=== PATIENT | female | born 1980 | race Caucasian/White ===

== ENCOUNTER 2017-09-01 16:35 | Inpatient (IN) | payer MEDICAID ==
[~2017-09-01] VITALS: Ht 165.1 cm; Wt 100.3 kg
[2017-09-01] MEDS ORDERED: RISP2 PO (17:59)
[2017-09-01] MEDS ORDERED: LEVO75 PO (18:00)
[2017-09-01] MEDS ORDERED: METF500T6 PO (18:01)
[2017-09-01] MEDS ORDERED: SERT50TA12 PO (18:08)
[2017-09-01] MEDS ORDERED: BENZ1TAB10 PO (18:08)
[2017-09-01] MEDS ORDERED: OLAN2.5T3 PO (18:08)
[2017-09-01] MEDS ORDERED: HYDR-3110 PO (18:08)
[2017-09-01 18:24] LABS: BASOPHILS % (AUTO) 1.1 % (0.0-2.0); EOSINOPHILS % (AUTO) 1.5 % (1.0-6.0); HEMATOCRIT 39.5 % (36-46); HEMOGLOBIN 13.3 g/dL (12.0-16.0); LYMPHOCYTES # (AUTO) 3.8 K/uL (1.0-4.8); LYMPHOCYTES % (AUTO) 40.6 % (22.0-44.0); MEAN CORPUSCULAR HEMOGLOBIN 27.5 pg (26.0-34.0); MEAN CORPUSCULAR HGB CONC 33.7 G/dL (31.0-37.0); MEAN CORPUSCULAR VOLUME 82 fL (80-100); MONOCYTES # (AUTO) 0.7 K/uL (0.1-1.0); MONOCYTES % (AUTO) 7.9 % (2.0-9.0); NEUTROPHILS # (AUTO) 4.5 K/uL (1.8-7.7); NEUTROPHILS % (AUTO) 48.9 % (40.0-70.0); PLATELET COUNT (AUTO) 325 K/uL (150-450); RED BLOOD CELL COUNT(AUTO) 4.85 MIL/uL (4.00-5.20); RED CELL DISTRIBUTION WIDTH 13.2 % (11.5-14.5)
[2017-09-01 18:34] LABS: ANION GAP 10 mmol/L (8-16); CALCIUM, TOTAL 9.4 mg/dL (8.8-10.5); CARBON DIOXIDE 24 mmol/L (22-29); CHLORIDE 99 mmol/L (98-107); CREATININE 0.73 mg/dL (0.60-1.30); GLOMERULAR FILTR. RATE CALC > 60 mL/min (>60); GLUCOSE,RANDOM 244 mg/dL (70-110); POTASSIUM 4.1 mmol/L (3.5-5.1); SODIUM SERUM 133 mmol/L (136-145); UREA NITROGEN, BLOOD 9 mg/dL (7-18)
[2017-09-01 18:40] LABS: ALANINE AMINOTRANSFERASE 69 U/L (12-78); ALBUMIN 3.7 g/dL (3.4-5.0); ALKALINE PHOSPHATASE 65 U/L (46-116); ASPARTATE AMINOTRANSFERASE 51 U/L (15-37); BILIRUBIN,TOTAL 0.3 mg/dL (0.1-1.0); TOTAL PROTEIN, SERUM 8.3 g/dL (6.4-8.2)
[2017-09-01 19:04] LABS: AMPHET/METH SCREEN,URINE NEGATIVE (NEGATIVE); BARBITURATE SCREEN, URINE NEGATIVE (NEGATIVE); BENZODIAZEPINES SCREEN,URINE NEGATIVE (NEGATIVE); CANNABINOID SCREEN,URINE NEGATIVE (NEGATIVE); COCAINE SCREEN,URINE NEGATIVE (NEGATIVE); METHADONE SCREEN, URINE NEGATIVE (NEGATIVE); OPIATE SCREEN,URINE NEGATIVE (NEGATIVE); PHENCYCLIDINE SCREEN,URINE NEGATIVE (NEGATIVE)
[2017-09-01 19:20] LABS: HCG,QUANTITATIVE < 1 mIU/mL (0-6)
[2017-09-01] MEDS: LORazepam 2 MG TABLET PO PRN (23:40)
[2017-09-01 23:47] LABS: GLUCOSE,POINT OF CARE 176 MG/DL (70-110)
[2017-09-01 23:58] LABS: GLUCOSE,POINT OF CARE 182 MG/DL (70-110)
[2017-09-02] MEDS ORDERED: PNEUMOCOCCAL VACCINE POLYVALENT 0.5 ML VIAL [PPSV23] IM ONE (01:15)
[2017-09-02 01:26] VITALS: BP 111/77
[2017-09-02 07:06] LABS: FREE T4 (FREE THYROXINE) 0.83 ng/dL (0.76-1.46); THYROID STIMULATING HORMONE 2.69 uIU/mL (0.36-3.74)
[2017-09-02] MEDS ORDERED: DEXTROSE 50%-WATER 25 GM/50 ML SYRINGE IVP PRN (07:15)
[2017-09-02] MEDS ORDERED: MetFORMIN HCL 500 MG TABLET PO SCH (07:30)
[2017-09-02 08:05] VITALS: BP 102/58
[2017-09-02] MEDS: LORazepam 2 MG TABLET PO PRN ×2 (09:46→17:09)
[2017-09-02 11:18] LABS: GLUCOMETER DEV NAME(LOC) 3EI B; GLUCOSE,POINT OF CARE 291 MG/DL (70-110)
[2017-09-02] MEDS: INSULIN LISPRO 100 UNITS/ML SQ PRN ×3 (11:27→20:57)
[2017-09-02] MEDS ORDERED: IBUPROFEN 400 MG TABLET PO PRN (14:00)
[2017-09-02 16:59] VITALS: BP 118/67
[2017-09-02] MEDS: MetFORMIN HCL 500 MG TABLET PO SCH (17:09)
[2017-09-02 17:18] LABS: GLUCOMETER DEV NAME(LOC) 3EI B; GLUCOSE,POINT OF CARE 275 MG/DL (70-110)
[2017-09-02] MEDS: HALOPERIDOL 5 MG TABLET PO PRN (18:01)
[2017-09-02 20:57] LABS: GLUCOMETER DEV NAME(LOC) 3EI B; GLUCOSE,POINT OF CARE 259 MG/DL (70-110)
[2017-09-03 05:38] LABS: GLUCOMETER DEV NAME(LOC) 3EI B; GLUCOSE,POINT OF CARE 229 MG/DL (70-110)
[2017-09-03 06:47] LABS: CHOL/HDL RATIO 6.6 (3.9-5.7); HDL CHOLESTEROL 42 mg/dL (40-60); THYROID STIMULATING HORMONE 1.58 uIU/mL (0.36-3.74); TRIGLYCERIDES 543 mg/dL (15-150)
[2017-09-03 06:54] LABS: CHOLESTEROL 279 mg/dL (131-200)
[2017-09-03] MEDS: MetFORMIN HCL 500 MG TABLET PO SCH ×2 (07:04→17:20)
[2017-09-03] MEDS: INSULIN LISPRO 100 UNITS/ML SQ PRN ×4 (07:05→22:00)
[2017-09-03 07:42] LABS: HEMOGLOBIN A1C 10.7 % (4.5-6.2)
[2017-09-03 08:21] VITALS: BP 116/72
[2017-09-03] MEDS: LORazepam 2 MG TABLET PO PRN (10:23)
[2017-09-03 11:43] LABS: GLUCOMETER DEV NAME(LOC) 3EI B; GLUCOSE,POINT OF CARE 253 MG/DL (70-110)
[2017-09-03 17:13] LABS: GLUCOMETER DEV NAME(LOC) 3EI B; GLUCOSE,POINT OF CARE 250 MG/DL (70-110)
[2017-09-03 20:01] VITALS: BP 115/72
[2017-09-03] MEDS: HydrOXYzine HCL 50 MG TABLET PO SCH (21:59)
[2017-09-03] MEDS: OLANZapine 10 MG TABLET PO SCH (21:59)
[2017-09-03 22:08] LABS: GLUCOMETER DEV NAME(LOC) 3EI B; GLUCOSE,POINT OF CARE 302 MG/DL (70-110)
[2017-09-04 02:00] VITALS: BP 135/67
[2017-09-04] MEDS: ZOLPIDEM TARTRATE 10 MG TABLET PO PRN (02:37)
[2017-09-04] MEDS: LORazepam 2 MG TABLET PO PRN ×2 (02:37→13:50)
[2017-09-04 05:43] LABS: GLUCOMETER DEV NAME(LOC) 3EI B; GLUCOSE,POINT OF CARE 265 MG/DL (70-110)
[2017-09-04] MEDS: MetFORMIN HCL 500 MG TABLET PO SCH ×2 (06:57→16:38)
[2017-09-04] MEDS: INSULIN LISPRO 100 UNITS/ML SQ PRN ×4 (07:00→20:53)
[2017-09-04 08:25] VITALS: BP 117/79
[2017-09-04 11:37] LABS: GLUCOMETER DEV NAME(LOC) 3EI B; GLUCOSE,POINT OF CARE 273 MG/DL (70-110)
[2017-09-04] MEDS: HALOPERIDOL 5 MG TABLET PO PRN (13:50)
[2017-09-04 16:33] VITALS: BP 124/80
[2017-09-04 16:42] LABS: GLUCOMETER DEV NAME(LOC) 3EI B; GLUCOSE,POINT OF CARE 298 MG/DL (70-110)
[2017-09-04] MEDS: HydrOXYzine HCL 50 MG TABLET PO SCH (20:46)
[2017-09-04 20:47] LABS: GLUCOMETER DEV NAME(LOC) 3EI B; GLUCOSE,POINT OF CARE 288 MG/DL (70-110)
[2017-09-04] MEDS: OLANZapine 10 MG TABLET PO SCH (20:48)
[2017-09-05] MEDS: ZOLPIDEM TARTRATE 10 MG TABLET PO PRN (00:01)
[2017-09-05] MEDS: LORazepam 2 MG TABLET PO PRN ×2 (00:01→08:13)
[2017-09-05 03:55] VITALS: BP 119/73
[2017-09-05] MEDS: ACETAMINOPHEN 325 MG TABLET PO PRN (04:05)
[2017-09-05 06:17] LABS: GLUCOMETER DEV NAME(LOC) 3EI B; GLUCOSE,POINT OF CARE 251 MG/DL (70-110)
[2017-09-05] MEDS: INSULIN LISPRO 100 UNITS/ML SQ PRN ×4 (06:33→20:56)
[2017-09-05] MEDS: MetFORMIN HCL 500 MG TABLET PO SCH ×2 (07:03→16:33)
[2017-09-05] MEDS: HALOPERIDOL 5 MG TABLET PO PRN (08:13)
[2017-09-05 11:17] LABS: GLUCOMETER DEV NAME(LOC) 3EI B; GLUCOSE,POINT OF CARE 288 MG/DL (70-110)
[2017-09-05 13:21] VITALS: BP 125/77
[2017-09-05 16:47] LABS: GLUCOMETER DEV NAME(LOC) 3EI B; GLUCOSE,POINT OF CARE 321 MG/DL (70-110)
[2017-09-05 17:12] VITALS: BP 115/74
[2017-09-05] MEDS: HydrOXYzine HCL 50 MG TABLET PO SCH (20:23)
[2017-09-05] MEDS: OLANZapine 10 MG TABLET PO SCH (20:23)
[2017-09-05 20:33] LABS: GLUCOMETER DEV NAME(LOC) 3EI B; GLUCOSE,POINT OF CARE 265 MG/DL (70-110)
[2017-09-06 06:23] LABS: GLUCOMETER DEV NAME(LOC) 3EI B; GLUCOSE,POINT OF CARE 242 MG/DL (70-110)
[2017-09-06] MEDS: INSULIN LISPRO 100 UNITS/ML SQ PRN ×4 (07:00→21:30)
[2017-09-06 07:06] VITALS: BP 114/68
[2017-09-06] MEDS: MetFORMIN HCL 500 MG TABLET PO SCH ×2 (07:06→17:55)
[2017-09-06 11:27] LABS: GLUCOMETER DEV NAME(LOC) 3EI B; GLUCOSE,POINT OF CARE 231 MG/DL (70-110)
[2017-09-06 12:22] VITALS: BP 116/70
[2017-09-06 16:04] VITALS: BP 123/73
[2017-09-06 16:58] LABS: GLUCOMETER DEV NAME(LOC) 3EI B; GLUCOSE,POINT OF CARE 238 MG/DL (70-110)
[2017-09-06 20:52] LABS: GLUCOMETER DEV NAME(LOC) 3EI B; GLUCOSE,POINT OF CARE 264 MG/DL (70-110)
[2017-09-06] MEDS: QUEtiapine FUMARATE 200 MG TABLET PO SCH (21:29)
[2017-09-06] MEDS: ZOLPIDEM TARTRATE 10 MG TABLET PO PRN (21:29)
[2017-09-06] MEDS: HydrOXYzine HCL 50 MG TABLET PO SCH (21:29)
[2017-09-07 04:48] VITALS: BP 122/66
[2017-09-07 05:37] LABS: GLUCOMETER DEV NAME(LOC) 3EI B; GLUCOSE,POINT OF CARE 237 MG/DL (70-110)
[2017-09-07] MEDS: MetFORMIN HCL 500 MG TABLET PO SCH ×2 (07:01→17:17)
[2017-09-07] MEDS: INSULIN LISPRO 100 UNITS/ML SQ PRN ×4 (07:02→22:13)
[2017-09-07 08:30] VITALS: BP 106/65
[2017-09-07] MEDS: QUEtiapine FUMARATE 100 MG TABLET PO SCH (08:48)
[2017-09-07] MEDS: ACETAMINOPHEN 325 MG TABLET PO PRN (09:47)
[2017-09-07 11:27] LABS: GLUCOMETER DEV NAME(LOC) 3EI B; GLUCOSE,POINT OF CARE 231 MG/DL (70-110)
[2017-09-07] MEDS ORDERED: NICOTINE 21 MG/24 HOUR PATCH TD PRN (13:15)
[2017-09-07 16:00] VITALS: BP 121/72
[2017-09-07 16:17] LABS: GLUCOMETER DEV NAME(LOC) 3EI B; GLUCOSE,POINT OF CARE 227 MG/DL (70-110)
[2017-09-07] MEDS: HydrOXYzine HCL 50 MG TABLET PO SCH (22:09)
[2017-09-07] MEDS: QUEtiapine FUMARATE 200 MG TABLET PO SCH (22:09)
[2017-09-07 22:17] LABS: GLUCOMETER DEV NAME(LOC) 3EI B; GLUCOSE,POINT OF CARE 248 MG/DL (70-110)
[2017-09-08 01:10] VITALS: BP 109/77
[2017-09-08 05:48] LABS: GLUCOMETER DEV NAME(LOC) 3EI B; GLUCOSE,POINT OF CARE 273 MG/DL (70-110)
[2017-09-08] MEDS: MetFORMIN HCL 500 MG TABLET PO SCH ×2 (07:03→17:19)
[2017-09-08] MEDS: INSULIN LISPRO 100 UNITS/ML SQ PRN ×4 (07:04→22:00)
[2017-09-08 08:00] VITALS: BP 118/71
[2017-09-08] MEDS: QUEtiapine FUMARATE 100 MG TABLET PO SCH (08:30)
[2017-09-08] MEDS: CALCIUM CARBONATE 500 MG CHEWABLE TABLET CHEW PRN (08:30)
[2017-09-08] MEDS: ACETAMINOPHEN 325 MG TABLET PO PRN (08:31)
[2017-09-08 11:22] LABS: GLUCOMETER DEV NAME(LOC) 3EI B; GLUCOSE,POINT OF CARE 248 MG/DL (70-110)
[2017-09-08] MEDS: LORazepam 2 MG TABLET PO PRN (13:13)
[2017-09-08] MEDS: HALOPERIDOL 5 MG TABLET PO PRN (13:13)
[2017-09-08] MEDS ORDERED: INSULIN LISPRO 100 UNITS/ML SQ PRN (15:15)
[2017-09-08 16:53] LABS: GLUCOMETER DEV NAME(LOC) 3EI B; GLUCOSE,POINT OF CARE 293 MG/DL (70-110)
[2017-09-08 17:36] VITALS: BP 126/69
[2017-09-08] MEDS: HydrOXYzine HCL 50 MG TABLET PO SCH (21:59)
[2017-09-08] MEDS: QUEtiapine FUMARATE 200 MG TABLET PO SCH (22:01)
[2017-09-08 22:03] LABS: GLUCOMETER DEV NAME(LOC) 3EI B; GLUCOSE,POINT OF CARE 232 MG/DL (70-110)
[2017-09-09 05:28] LABS: GLUCOMETER DEV NAME(LOC) 3EI B; GLUCOSE,POINT OF CARE 205 MG/DL (70-110)
[2017-09-09] MEDS: MetFORMIN HCL 500 MG TABLET PO SCH (06:51)
[2017-09-09] MEDS: INSULIN LISPRO 100 UNITS/ML SQ PRN ×2 (07:04→12:19)
[2017-09-09 09:49] VITALS: BP 117/77
[2017-09-09] MEDS: QUEtiapine FUMARATE 100 MG TABLET PO SCH (10:04)
[2017-09-09] MEDS ORDERED: QUET100T PO (11:01)
[2017-09-09] MEDS ORDERED: QUET200T PO (11:01)
[2017-09-09] MEDS ORDERED: HYD50 PO (11:03)
[2017-09-09 12:18] LABS: GLUCOMETER DEV NAME(LOC) 3EI B; GLUCOSE,POINT OF CARE 199 MG/DL (70-110)
[2017-09-09] MEDS: CALCIUM CARBONATE 500 MG CHEWABLE TABLET CHEW PRN (13:03)
[2017-09-09 14:19] VITALS: BP 110/66
[2017-09-09] MEDS: ACETAMINOPHEN 325 MG TABLET PO PRN (14:19)
[2017-09-09 15:22] VITALS: BP 114/72
== END 2017-09-09 15:30 | disposition home or self-care (01) | DRG 750 ==
LOC: EDUNIT# 16:35 → EMS 16:37 → EEVIPCON 16:37 → 3EI 23:30
PROVIDERS: ADMIT Psychiatry & Neurology Psychiatry; ATTEND Psychiatry & Neurology Psychiatry
DX: F25.9 Schizoaffective disorder, unspecified (principal); E87.1 Hypo-osmolality and hyponatremia; R45.851 Suicidal ideations; E11.9 Type 2 diabetes mellitus without complications; E78.00 Pure hypercholesterolemia, unspecified; E78.5 Hyperlipidemia, unspecified; R45.850 Homicidal ideations; F31.9 Bipolar disorder, unspecified; Z79.899 Other long term (current) drug therapy
CPT/HCPCS: 83036; 84439; 84443; 99285; G0480

== ENCOUNTER 2018-03-03 06:34 | Emergency (ER) | payer MEDICAID, OTHER ==
[~2018-03-03] VITALS: Ht 165.1 cm; Wt 97.5 kg
[~2018-03-03 06:34] MED LIST: ATOR10TA84 PO; BENZ0.5T44 PO; FLUP1 PO; METF500T7 PO
[2018-03-03] MEDS: IBUPROFEN 600 MG TABLET PO ONE (07:26)
[2018-03-03 09:20] VITALS: BP 124/86
== END 2018-03-03 09:20 | disposition home or self-care (01) ==
LOC: EMS 06:34
DX: M79.10 Myalgia, unspecified site (principal); F41.9 Anxiety disorder, unspecified; F31.9 Bipolar disorder, unspecified; E11.9 Type 2 diabetes mellitus without complications; E78.00 Pure hypercholesterolemia, unspecified; F20.9 Schizophrenia, unspecified; Z79.84 Long term (current) use of oral hypoglycemic drugs; Z88.8 Allergy status to other drugs, medicaments and biological substances

== ENCOUNTER 2018-06-30 19:14 | Inpatient (IN) | payer MEDICAID, OTHER ==
[~2018-06-30] VITALS: Ht 165.1 cm; Wt 92.6 kg
[2018-06-30 20:04] LABS: GLUCOSE,POINT OF CARE 181 MG/DL (70-110)
[2018-06-30 20:57] LABS: BASOPHILS % (AUTO) 0.5 % (0.0-2.0); EOSINOPHILS % (AUTO) 1.9 % (1.0-6.0); HEMATOCRIT 39.1 % (36-46); HEMOGLOBIN 12.7 g/dL (12.0-16.0); LYMPHOCYTES # (AUTO) 4.3 K/uL (1.0-4.8); LYMPHOCYTES % (AUTO) 30.1 % (22.0-44.0); MEAN CORPUSCULAR HEMOGLOBIN 27.7 pg (26.0-34.0); MEAN CORPUSCULAR HGB CONC 32.5 G/dL (31.0-37.0); MEAN CORPUSCULAR VOLUME 85 fL (80-100); MONOCYTES # (AUTO) 0.9 K/uL (0.1-1.0); MONOCYTES % (AUTO) 6.6 % (2.0-9.0); NEUTROPHILS # (AUTO) 8.6 K/uL (1.8-7.7); NEUTROPHILS % (AUTO) 60.9 % (40.0-70.0); PLATELET COUNT (AUTO) 399 K/uL (150-450); RED BLOOD CELL COUNT(AUTO) 4.57 MIL/uL (4.00-5.20); RED CELL DISTRIBUTION WIDTH 14.2 % (11.5-14.5)
[2018-06-30 21:06] LABS: ANION GAP 16 mmol/L (8-16); CALCIUM, TOTAL 9.2 mg/dL (8.8-10.5); CARBON DIOXIDE 21 mmol/L (22-29); CHLORIDE 101 mmol/L (98-107); CREATININE 0.82 mg/dL (0.60-1.30); GLOMERULAR FILTR. RATE CALC > 60 mL/min (>60); GLUCOSE,RANDOM 234 mg/dL (70-110); POTASSIUM 3.7 mmol/L (3.5-5.1); SODIUM SERUM 138 mmol/L (136-145); UREA NITROGEN, BLOOD 12 mg/dL (7-18)
[2018-06-30 21:17] LABS: ALANINE AMINOTRANSFERASE 30 U/L (12-78); ALBUMIN 3.3 g/dL (3.4-5.0); ALKALINE PHOSPHATASE 84 U/L (46-116); ASPARTATE AMINOTRANSFERASE 13 U/L (15-37); BILIRUBIN,TOTAL 0.1 mg/dL (0.1-1.0); HCG,QUANTITATIVE < 1 mIU/mL (0-6); TOTAL PROTEIN, SERUM 8.2 g/dL (6.4-8.2)
[2018-06-30 22:40] LABS: AMPHET/METH SCREEN,URINE NEGATIVE (NEGATIVE); BARBITURATE SCREEN, URINE NEGATIVE (NEGATIVE); BENZODIAZEPINES SCREEN,URINE NEGATIVE (NEGATIVE); CANNABINOID SCREEN,URINE NEGATIVE (NEGATIVE); COCAINE SCREEN,URINE NEGATIVE (NEGATIVE); METHADONE SCREEN, URINE NEGATIVE (NEGATIVE); OPIATE SCREEN,URINE NEGATIVE (NEGATIVE)
[2018-06-30 22:42] LABS: PHENCYCLIDINE SCREEN,URINE NEGATIVE (NEGATIVE)
[2018-06-30 22:47] LABS: APPEARANCE,URINE CLOUDY (CLEAR); BILIRUBIN,URINE NEGATIVE (NEGATIVE); GLUCOSE, URINE (UA) NEGATIVE (NEGATIVE); KETONES,URINE NEGATIVE (NEGATIVE); LEUKOCYTE ESTERASE ,URINE NEGATIVE (NEGATIVE); OCCULT BLOOD,URINE LARGE (NEGATIVE); PH,URINE 5.5 (5.0-8.0); PROTEIN,URINE NEGATIVE (NEGATIVE); UROBILINOGEN,URINE 0.2 mg/dL (<=1.0)
[2018-06-30 22:58] LABS: BACTERIA,URINE Many /HPF (None Seen); NITRATE,URINE POSITIVE (NEGATIVE); SQUAMOUS EPITHELIAL CELL,UR Few /LPF (None Seen); WBC,URINE 0-2 /HPF (0-5)
[2018-06-30] MEDS ORDERED: ACETAMINOPHEN 500 MG TABLET PO ONE (23:30)
[2018-07-01] MEDS ORDERED: ZOLPIDEM TARTRATE 10 MG TABLET PO PRN (01:15)
[2018-07-01 04:35] VITALS: BP 99/65
[2018-07-01] MEDS ORDERED: PNEUMOCOCCAL VACCINE POLYVALENT 0.5 ML VIAL [PPSV23] IM ONE (04:45)
[2018-07-01] MEDS: LORazepam 2 MG TABLET PO PRN (04:56)
[2018-07-01] MEDS ORDERED: MAG HYDROX/AL HYDROX/SIMETH ES 30 ML SUSPENSION UDCUP PO PRN (07:45)
[2018-07-01] MEDS ORDERED: BACITRACIN 28.4 GM OINTMENT TP PRN (07:45)
[2018-07-01] MEDS ORDERED: CloNIDine HCL 0.1 MG TABLET PO PRN (07:45)
[2018-07-01] MEDS ORDERED: MAGNESIUM HYDROXIDE SUSPENSION 30 ML UDCUP PO PRN (07:45)
[2018-07-01] MEDS ORDERED: IBUPROFEN 600 MG TABLET PO PRN (07:45)
[2018-07-01] MEDS ORDERED: BENZOCAINE/MENTHOL LOZENGE MM PRN (07:45)
[2018-07-01] MEDS ORDERED: DEXTROSE 50%-WATER 25 GM/50 ML SYRINGE IVP PRN (07:45)
[2018-07-01] MEDS ORDERED: ONDANSETRON HCL 4 MG TABLET PO PRN (07:45)
[2018-07-01] MEDS ORDERED: PETROLATUM,WHITE 71 GM JELLY TP PRN (07:45)
[2018-07-01] MEDS ORDERED: ALBUTEROL SULFATE HFA 90 MCG/PUFF 8 GM INHALER IH PRN (07:45)
[2018-07-01] MEDS ORDERED: LOPERAMIDE HCL 2 MG CAPSULE PO PRN (07:45)
[2018-07-01] MEDS: OMEPRAZOLE 20 MG CAPSULE PO SCH (08:47)
[2018-07-01] MEDS: DOCUSATE SODIUM 100 MG CAPSULE PO SCH (08:47)
[2018-07-01 09:00] VITALS: BP 129/90
[2018-07-01 09:24] LABS: BAND NEUTROPHILS % (MANUAL) 0 % (0-5)
[2018-07-01 09:26] LABS: HEMATOCRIT 37.4 % (36-46); MEAN CORPUSCULAR HEMOGLOBIN 27.3 pg (26.0-34.0); MEAN CORPUSCULAR HGB CONC 32.1 G/dL (31.0-37.0); MEAN CORPUSCULAR VOLUME 85 fL (80-100); PLATELET COUNT (AUTO) 362 K/uL (150-450); RED CELL DISTRIBUTION WIDTH 14.4 % (11.5-14.5)
[2018-07-01 10:02] LABS: ANION GAP 11 mmol/L (8-16); CARBON DIOXIDE 26 mmol/L (22-29); CHLORIDE 102 mmol/L (98-107); CREATININE 0.73 mg/dL (0.60-1.30); GLOMERULAR FILTR. RATE CALC > 60 mL/min (>60); GLUCOSE,RANDOM 240 mg/dL (70-110); PHOSPHORUS 4.3 mg/dL (2.5-4.9); POTASSIUM 4.3 mmol/L (3.5-5.1); SODIUM SERUM 139 mmol/L (136-145); UREA NITROGEN, BLOOD 9 mg/dL (7-18)
[2018-07-01 10:29] LABS: EOSINOPHILS % (MANUAL) 2 % (1-6); LYMPHOCYTES % (MANUAL) 27 % (22-44); MONOCYTES % (MANUAL) 5 % (2-9); SEGMENTED NEUTROPHILS % 66 % (40-70)
[2018-07-01 11:43] LABS: GLUCOMETER DEV NAME(LOC) 3E.I; GLUCOSE,POINT OF CARE 184 MG/DL (70-110)
[2018-07-01] MEDS: INSULIN LISPRO 100 UNITS/ML SQ PRN ×2 (11:46→17:38)
[2018-07-01 16:30] VITALS: BP 116/71
[2018-07-01] MEDS: MetFORMIN HCL 500 MG ER TABLET PO SCH (16:40)
[2018-07-01 16:44] LABS: GLUCOMETER DEV NAME(LOC) 3E.I; GLUCOSE,POINT OF CARE 153 MG/DL (70-110)
[2018-07-01] MEDS: ATORVASTATIN CALCIUM 10 MG TABLET PO SCH (21:00)
[2018-07-01] MEDS: QUEtiapine FUMARATE 200 MG TABLET PO SCH (21:00)
[2018-07-01] MEDS: FluPHENAZine HCL 5 MG TABLET PO SCH (21:00)
[2018-07-02 05:54] LABS: GLUCOMETER DEV NAME(LOC) 3E.I; GLUCOSE,POINT OF CARE 188 MG/DL (70-110)
[2018-07-02] MEDS: MetFORMIN HCL 500 MG ER TABLET PO SCH ×2 (07:06→16:40)
[2018-07-02] MEDS: INSULIN LISPRO 100 UNITS/ML SQ PRN ×4 (07:07→20:46)
[2018-07-02 08:00] VITALS: BP 121/79
[2018-07-02] MEDS: LORazepam 2 MG TABLET PO PRN ×3 (08:55→16:40)
[2018-07-02] MEDS: OMEPRAZOLE 20 MG CAPSULE PO SCH (08:55)
[2018-07-02] MEDS: QUEtiapine FUMARATE 100 MG TABLET PO SCH (08:55)
[2018-07-02] MEDS: BENZTROPINE MESYLATE 1 MG TABLET PO SCH ×2 (08:55→16:40)
[2018-07-02] MEDS: DOCUSATE SODIUM 100 MG CAPSULE PO SCH (08:56)
[2018-07-02 12:04] LABS: GLUCOMETER DEV NAME(LOC) 3E.I; GLUCOSE,POINT OF CARE 161 MG/DL (70-110)
[2018-07-02 16:30] VITALS: BP 121/66
[2018-07-02 16:44] LABS: GLUCOMETER DEV NAME(LOC) 3E.I; GLUCOSE,POINT OF CARE 195 MG/DL (70-110)
[2018-07-02] MEDS: FluPHENAZine HCL 5 MG TABLET PO SCH (20:47)
[2018-07-02] MEDS: ATORVASTATIN CALCIUM 10 MG TABLET PO SCH (20:48)
[2018-07-02] MEDS: QUEtiapine FUMARATE 200 MG TABLET PO SCH (20:48)
[2018-07-02 21:24] LABS: GLUCOMETER DEV NAME(LOC) 3E.I; GLUCOSE,POINT OF CARE 205 MG/DL (70-110)
[2018-07-03 05:54] LABS: GLUCOMETER DEV NAME(LOC) 3E.I; GLUCOSE,POINT OF CARE 208 MG/DL (70-110)
[2018-07-03] MEDS: INSULIN LISPRO 100 UNITS/ML SQ PRN ×4 (06:57→20:23)
[2018-07-03] MEDS: MetFORMIN HCL 500 MG ER TABLET PO SCH ×2 (06:57→16:22)
[2018-07-03] MEDS: LORazepam 2 MG TABLET PO PRN ×2 (07:56→12:05)
[2018-07-03] MEDS: QUEtiapine FUMARATE 100 MG TABLET PO SCH (07:56)
[2018-07-03] MEDS: BENZTROPINE MESYLATE 1 MG TABLET PO SCH ×2 (07:56→16:22)
[2018-07-03] MEDS: DOCUSATE SODIUM 100 MG CAPSULE PO SCH (07:56)
[2018-07-03] MEDS: OMEPRAZOLE 20 MG CAPSULE PO SCH (07:56)
[2018-07-03 08:00] VITALS: BP 123/76
[2018-07-03 12:03] LABS: GLUCOMETER DEV NAME(LOC) 3E.I; GLUCOSE,POINT OF CARE 163 MG/DL (70-110)
[2018-07-03 16:54] LABS: GLUCOMETER DEV NAME(LOC) 3E.I; GLUCOSE,POINT OF CARE 169 MG/DL (70-110)
[2018-07-03] MEDS: QUEtiapine FUMARATE 200 MG TABLET PO SCH (20:22)
[2018-07-03] MEDS: FluPHENAZine HCL 5 MG TABLET PO SCH (20:22)
[2018-07-03] MEDS: ATORVASTATIN CALCIUM 10 MG TABLET PO SCH (20:22)
[2018-07-03 21:04] VITALS: BP 126/78
[2018-07-03 21:18] LABS: GLUCOMETER DEV NAME(LOC) 3E.I; GLUCOSE,POINT OF CARE 273 MG/DL (70-110)
[2018-07-04 06:10] LABS: GLUCOMETER DEV NAME(LOC) 3E.I; GLUCOSE,POINT OF CARE 160 MG/DL (70-110)
[2018-07-04] MEDS: INSULIN LISPRO 100 UNITS/ML SQ PRN ×4 (06:51→21:25)
[2018-07-04] MEDS: MetFORMIN HCL 500 MG ER TABLET PO SCH ×2 (06:55→16:13)
[2018-07-04] MEDS: QUEtiapine FUMARATE 100 MG TABLET PO SCH (09:25)
[2018-07-04] MEDS: DOCUSATE SODIUM 100 MG CAPSULE PO SCH (09:25)
[2018-07-04] MEDS: BENZTROPINE MESYLATE 1 MG TABLET PO SCH ×2 (09:25→16:13)
[2018-07-04] MEDS: OMEPRAZOLE 20 MG CAPSULE PO SCH (09:25)
[2018-07-04 12:19] LABS: GLUCOMETER DEV NAME(LOC) 3E.I; GLUCOSE,POINT OF CARE 209 MG/DL (70-110)
[2018-07-04 12:58] VITALS: BP 120/96
[2018-07-04] MEDS: LORazepam 2 MG TABLET PO PRN ×2 (16:13→20:16)
[2018-07-04 16:48] LABS: GLUCOMETER DEV NAME(LOC) 3E.I; GLUCOSE,POINT OF CARE 147 MG/DL (70-110)
[2018-07-04 19:05] VITALS: BP 130/88
[2018-07-04] MEDS: AMOX TR/POT CLAV 500 MG/125 MG TABLET PO SCH (20:14)
[2018-07-04] MEDS: QUEtiapine FUMARATE 200 MG TABLET PO SCH (20:14)
[2018-07-04] MEDS: FluPHENAZine HCL 5 MG TABLET PO SCH (20:14)
[2018-07-04] MEDS: ATORVASTATIN CALCIUM 10 MG TABLET PO SCH (20:14)
[2018-07-04 21:23] LABS: GLUCOMETER DEV NAME(LOC) 3E.I; GLUCOSE,POINT OF CARE 178 MG/DL (70-110)
[2018-07-05 05:49] LABS: GLUCOMETER DEV NAME(LOC) 3E.I; GLUCOSE,POINT OF CARE 169 MG/DL (70-110)
[2018-07-05] MEDS: MetFORMIN HCL 500 MG ER TABLET PO SCH ×2 (06:59→16:46)
[2018-07-05] MEDS: OMEPRAZOLE 20 MG CAPSULE PO SCH (09:25)
[2018-07-05] MEDS: DOCUSATE SODIUM 100 MG CAPSULE PO SCH (09:25)
[2018-07-05] MEDS: AMOX TR/POT CLAV 500 MG/125 MG TABLET PO SCH ×2 (09:26→20:04)
[2018-07-05] MEDS: QUEtiapine FUMARATE 100 MG TABLET PO SCH (09:26)
[2018-07-05] MEDS: BENZTROPINE MESYLATE 1 MG TABLET PO SCH ×2 (09:26→16:47)
[2018-07-05 10:02] VITALS: BP 128/86
[2018-07-05] MEDS: LORazepam 2 MG TABLET PO PRN (10:10)
[2018-07-05] MEDS: INSULIN LISPRO 100 UNITS/ML SQ PRN ×3 (13:09→21:31)
[2018-07-05] MEDS: FluPHENAZine HCL 5 MG TABLET PO SCH (20:04)
[2018-07-05] MEDS: QUEtiapine FUMARATE 200 MG TABLET PO SCH (20:04)
[2018-07-05] MEDS: ATORVASTATIN CALCIUM 10 MG TABLET PO SCH (20:04)
[2018-07-05 20:54] LABS: GLUCOMETER DEV NAME(LOC) 3E.C; GLUCOSE,POINT OF CARE 254 MG/DL (70-110)
[2018-07-06] MEDS: MetFORMIN HCL 500 MG ER TABLET PO SCH ×2 (06:35→16:07)
[2018-07-06] MEDS: AMOX TR/POT CLAV 500 MG/125 MG TABLET PO SCH ×2 (09:28→20:24)
[2018-07-06] MEDS: OMEPRAZOLE 20 MG CAPSULE PO SCH (09:30)
[2018-07-06] MEDS: BENZTROPINE MESYLATE 1 MG TABLET PO SCH ×2 (09:30→16:07)
[2018-07-06] MEDS: QUEtiapine FUMARATE 100 MG TABLET PO SCH (09:30)
[2018-07-06] MEDS: DOCUSATE SODIUM 100 MG CAPSULE PO SCH (09:30)
[2018-07-06] MEDS: LORazepam 2 MG TABLET PO PRN (09:31)
[2018-07-06 09:51] VITALS: BP 109/62
[2018-07-06 11:49] LABS: GLUCOMETER DEV NAME(LOC) 3E.I; GLUCOSE,POINT OF CARE 170 MG/DL (70-110)
[2018-07-06] MEDS: INSULIN LISPRO 100 UNITS/ML SQ PRN ×3 (13:01→21:34)
[2018-07-06 13:19] VITALS: BP 108/72
[2018-07-06] MEDS: ACETAMINOPHEN 325 MG TABLET PO PRN (13:19)
[2018-07-06 16:40] VITALS: BP 115/95
[2018-07-06 16:43] LABS: GLUCOMETER DEV NAME(LOC) 3E.I; GLUCOSE,POINT OF CARE 162 MG/DL (70-110)
[2018-07-06] MEDS: FluPHENAZine HCL 5 MG TABLET PO SCH (20:24)
[2018-07-06] MEDS: QUEtiapine FUMARATE 200 MG TABLET PO SCH (20:24)
[2018-07-06] MEDS: ATORVASTATIN CALCIUM 10 MG TABLET PO SCH (20:24)
[2018-07-06 20:39] LABS: GLUCOMETER DEV NAME(LOC) 3E.I; GLUCOSE,POINT OF CARE 272 MG/DL (70-110)
[2018-07-07 05:54] LABS: GLUCOMETER DEV NAME(LOC) 3E.I; GLUCOSE,POINT OF CARE 194 MG/DL (70-110)
[2018-07-07] MEDS: MetFORMIN HCL 500 MG ER TABLET PO SCH ×2 (06:37→16:44)
[2018-07-07] MEDS: INSULIN LISPRO 100 UNITS/ML SQ PRN ×4 (06:50→21:30)
[2018-07-07] MEDS ORDERED: FluPHENAZine DECANOATE 25 MG/ML IM SCH (09:00)
[2018-07-07] MEDS: OMEPRAZOLE 20 MG CAPSULE PO SCH (09:59)
[2018-07-07] MEDS: DOCUSATE SODIUM 100 MG CAPSULE PO SCH (09:59)
[2018-07-07] MEDS: BENZTROPINE MESYLATE 1 MG TABLET PO SCH ×2 (10:00→16:44)
[2018-07-07] MEDS: QUEtiapine FUMARATE 100 MG TABLET PO SCH (10:00)
[2018-07-07] MEDS: AMOX TR/POT CLAV 500 MG/125 MG TABLET PO SCH (10:00)
[2018-07-07 10:03] VITALS: BP 115/83
[2018-07-07 10:04] VITALS: BP 115/93
[2018-07-07] MEDS: ACETAMINOPHEN 325 MG TABLET PO PRN (10:07)
[2018-07-07 11:58] LABS: GLUCOMETER DEV NAME(LOC) 3E.I; GLUCOSE,POINT OF CARE 191 MG/DL (70-110)
[2018-07-07 16:29] LABS: GLUCOMETER DEV NAME(LOC) 3E.I; GLUCOSE,POINT OF CARE 203 MG/DL (70-110)
[2018-07-07 16:49] VITALS: BP 124/87
[2018-07-07] MEDS: FluPHENAZine HCL 5 MG TABLET PO SCH (20:12)
[2018-07-07] MEDS: ATORVASTATIN CALCIUM 10 MG TABLET PO SCH (20:12)
[2018-07-07] MEDS: QUEtiapine FUMARATE 200 MG TABLET PO SCH (20:12)
[2018-07-07 21:01] LABS: GLUCOMETER DEV NAME(LOC) 3E.I; GLUCOSE,POINT OF CARE 208 MG/DL (70-110)
[2018-07-08 06:24] LABS: GLUCOMETER DEV NAME(LOC) 3E.I; GLUCOSE,POINT OF CARE 216 MG/DL (70-110)
[2018-07-08] MEDS: MetFORMIN HCL 500 MG ER TABLET PO SCH ×2 (07:15→16:25)
[2018-07-08] MEDS: INSULIN LISPRO 100 UNITS/ML SQ PRN ×4 (07:16→20:55)
[2018-07-08] MEDS: LORazepam 2 MG TABLET PO PRN (09:12)
[2018-07-08] MEDS: QUEtiapine FUMARATE 100 MG TABLET PO SCH (09:12)
[2018-07-08] MEDS: DOCUSATE SODIUM 100 MG CAPSULE PO SCH (09:12)
[2018-07-08] MEDS: BENZTROPINE MESYLATE 1 MG TABLET PO SCH ×2 (09:12→16:25)
[2018-07-08] MEDS: OMEPRAZOLE 20 MG CAPSULE PO SCH (09:12)
[2018-07-08 09:30] VITALS: BP 114/85
[2018-07-08 11:39] LABS: GLUCOMETER DEV NAME(LOC) 3E.I; GLUCOSE,POINT OF CARE 205 MG/DL (70-110)
[2018-07-08 16:34] LABS: GLUCOMETER DEV NAME(LOC) 3E.I; GLUCOSE,POINT OF CARE 163 MG/DL (70-110)
[2018-07-08 16:34] LABS: GLUCOMETER DEV NAME(LOC) 3E.I; GLUCOSE,POINT OF CARE 251 MG/DL (70-110)
[2018-07-08 18:34] VITALS: BP 115/66
[2018-07-08] MEDS: QUEtiapine FUMARATE 200 MG TABLET PO SCH (20:52)
[2018-07-08] MEDS: FluPHENAZine HCL 5 MG TABLET PO SCH (20:52)
[2018-07-08] MEDS: ATORVASTATIN CALCIUM 10 MG TABLET PO SCH (20:52)
[2018-07-08 20:59] LABS: GLUCOMETER DEV NAME(LOC) 3E.I; GLUCOSE,POINT OF CARE 249 MG/DL (70-110)
[2018-07-09 05:48] LABS: GLUCOMETER DEV NAME(LOC) 3E.I; GLUCOSE,POINT OF CARE 240 MG/DL (70-110)
[2018-07-09] MEDS: INSULIN LISPRO 100 UNITS/ML SQ PRN ×4 (06:52→21:21)
[2018-07-09] MEDS: MetFORMIN HCL 500 MG ER TABLET PO SCH ×2 (06:54→16:10)
[2018-07-09] MEDS: LORazepam 2 MG TABLET PO PRN ×2 (07:44→16:19)
[2018-07-09 08:03] VITALS: BP 111/73
[2018-07-09] MEDS: ACETAMINOPHEN 325 MG TABLET PO PRN (08:06)
[2018-07-09] MEDS: BENZTROPINE MESYLATE 1 MG TABLET PO SCH ×2 (08:06→16:10)
[2018-07-09] MEDS: QUEtiapine FUMARATE 100 MG TABLET PO SCH (08:06)
[2018-07-09] MEDS: OMEPRAZOLE 20 MG CAPSULE PO SCH (08:06)
[2018-07-09] MEDS: DOCUSATE SODIUM 100 MG CAPSULE PO SCH (08:06)
[2018-07-09 12:00] LABS: GLUCOMETER DEV NAME(LOC) 3E.I; GLUCOSE,POINT OF CARE 237 MG/DL (70-110)
[2018-07-09 16:17] VITALS: BP 125/77
[2018-07-09 16:34] LABS: GLUCOMETER DEV NAME(LOC) 3E.I; GLUCOSE,POINT OF CARE 228 MG/DL (70-110)
[2018-07-09] MEDS: FluPHENAZine HCL 5 MG TABLET PO SCH (20:42)
[2018-07-09] MEDS: ATORVASTATIN CALCIUM 10 MG TABLET PO SCH (20:42)
[2018-07-09] MEDS: QUEtiapine FUMARATE 200 MG TABLET PO SCH (20:43)
[2018-07-09 23:09] LABS: GLUCOMETER DEV NAME(LOC) 3E.C; GLUCOSE,POINT OF CARE 261 MG/DL (70-110)
[2018-07-10 05:54] LABS: GLUCOMETER DEV NAME(LOC) 3E.I; GLUCOSE,POINT OF CARE 218 MG/DL (70-110)
[2018-07-10] MEDS: INSULIN LISPRO 100 UNITS/ML SQ PRN ×3 (06:44→17:21)
[2018-07-10] MEDS: MetFORMIN HCL 500 MG ER TABLET PO SCH ×2 (06:53→17:45)
[2018-07-10 08:00] VITALS: BP 133/56
[2018-07-10] MEDS: BENZTROPINE MESYLATE 1 MG TABLET PO SCH ×2 (09:46→16:06)
[2018-07-10] MEDS: OMEPRAZOLE 20 MG CAPSULE PO SCH (09:47)
[2018-07-10] MEDS: DOCUSATE SODIUM 100 MG CAPSULE PO SCH (09:47)
[2018-07-10] MEDS: QUEtiapine FUMARATE 100 MG TABLET PO SCH (09:47)
[2018-07-10 11:29] LABS: GLUCOMETER DEV NAME(LOC) 3E.I; GLUCOSE,POINT OF CARE 249 MG/DL (70-110)
[2018-07-10] MEDS: LORazepam 2 MG TABLET PO PRN (16:06)
[2018-07-10] MEDS ORDERED: BENZ1TAB10 PO (16:17)
[2018-07-10] MEDS ORDERED: FLUP5 PO (16:19)
[2018-07-10] MEDS ORDERED: QUET50TA15 PO (16:21)
[2018-07-10] MEDS ORDERED: QUET100T PO (16:21)
[2018-07-10] MEDS ORDERED: QUET200T PO (16:21)
[2018-07-10] MEDS ORDERED: FLUD25I IM (16:23)
[2018-07-10] MEDS ORDERED: METF500T7 PO (16:29)
[2018-07-10] MEDS ORDERED: ATOR10TA84 PO (16:29)
[2018-07-10] MEDS ORDERED: DSS100 PO (16:29)
[2018-07-10] MEDS ORDERED: OMEP20 PO (16:30)
[2018-07-10 16:44] LABS: GLUCOMETER DEV NAME(LOC) 3E.I; GLUCOSE,POINT OF CARE 171 MG/DL (70-110)
== END 2018-07-10 18:45 | disposition home or self-care (01) | DRG 750 ==
LOC: EMS 19:14 → 3EI 07-01 03:30
PROVIDERS: ADMIT Psychiatry & Neurology Psychiatry; ATTEND Psychiatry & Neurology Psychiatry
DX: F20.0 Paranoid schizophrenia (principal); R45.850 Homicidal ideations; E78.5 Hyperlipidemia, unspecified; E78.00 Pure hypercholesterolemia, unspecified; E11.9 Type 2 diabetes mellitus without complications; G47.00 Insomnia, unspecified; G89.29 Other chronic pain; K59.00 Constipation, unspecified; F31.9 Bipolar disorder, unspecified; Z88.8 Allergy status to other drugs, medicaments and biological substances
CPT/HCPCS: 83735; 84100; 85007; 87086; G0480; J2680

== ENCOUNTER 2018-12-11 15:08 | Emergency (ER) | payer MEDICAID, OTHER ==
[~2018-12-11] VITALS: Ht 165.1 cm; Wt 104.5 kg
[~2018-12-11 15:08] MED LIST changes: -BENZ0.5T44 PO; +BENZ1TAB10 PO; -FLUP1 PO; +FLUP5 PO; +GLIP10 PO; +METF500T PO; -METF500T7 PO; +QUET200T PO
[2018-12-11 15:30] LABS: GLUCOSE,POINT OF CARE 197 MG/DL (70-110)
[2018-12-11 16:06] LABS: BASOPHILS % (AUTO) 0.3 % (0.0-2.0); EOSINOPHILS % (AUTO) 1.5 % (1.0-6.0); HEMATOCRIT 37.1 % (36-46); LYMPHOCYTES # (AUTO) 4.2 K/uL (1.0-4.8); LYMPHOCYTES % (AUTO) 46.6 % (22.0-44.0); MEAN CORPUSCULAR HEMOGLOBIN 27.3 pg (26.0-34.0); MEAN CORPUSCULAR HGB CONC 32.5 G/dL (31.0-37.0); MEAN CORPUSCULAR VOLUME 84 fL (80-100); MONOCYTES # (AUTO) 0.7 K/uL (0.1-1.0); MONOCYTES % (AUTO) 7.7 % (2.0-9.0); NEUTROPHILS % (AUTO) 43.9 % (40.0-70.0); PLATELET COUNT (AUTO) 362 K/uL (150-450); RED CELL DISTRIBUTION WIDTH 15.4 % (11.5-14.5)
[2018-12-11 16:19] LABS: ANION GAP 12 mmol/L (8-16); CALCIUM, TOTAL 9.5 mg/dL (8.8-10.5); CARBON DIOXIDE 26 mmol/L (22-29); CHLORIDE 99 mmol/L (98-107); CREATININE 0.77 mg/dL (0.60-1.30); GLOMERULAR FILTR. RATE CALC > 60 mL/min (>60); GLUCOSE,RANDOM 174 mg/dL (70-110); POTASSIUM 3.6 mmol/L (3.5-5.1); SODIUM SERUM 137 mmol/L (136-145); UREA NITROGEN, BLOOD 5 mg/dL (7-18)
[2018-12-11 16:37] LABS: INR 0.9 (0.9-1.1); PROTHROMBIN TIME 9.5 SEC (9.4-11.6)
[2018-12-11 16:42] LABS: ALANINE AMINOTRANSFERASE 37 U/L (12-78); ALBUMIN 3.7 g/dL (3.4-5.0); ALKALINE PHOSPHATASE 72 U/L (46-116); ASPARTATE AMINOTRANSFERASE 24 U/L (15-37); BILIRUBIN,TOTAL 0.2 mg/dL (0.1-1.0); CREATINE KINASE, TOTAL ONLY 179 U/L (26-192); HCG,QUANTITATIVE < 1 mIU/mL (0-6)
[2018-12-11 17:03] LABS: B-TYPE NATRIURETIC PEPTIDE 37 pg/mL (0-100)
[2018-12-11] MEDS ORDERED: LORazepam 2 MG/ML VIAL IM ONE (18:00)
[2018-12-11] MEDS ORDERED: DiphenhydrAMINE HCL 50 MG/ML VIAL IM ONE (18:15)
[2018-12-11 20:08] VITALS: BP 122/78
== END 2018-12-11 20:45 | disposition home or self-care (01) ==
LOC: EMS 15:10
DX: R07.89 Other chest pain (principal); E11.9 Type 2 diabetes mellitus without complications; E78.00 Pure hypercholesterolemia, unspecified; F20.9 Schizophrenia, unspecified; F31.9 Bipolar disorder, unspecified; F17.210 Nicotine dependence, cigarettes, uncomplicated; Z88.8 Allergy status to other drugs, medicaments and biological substances; Z79.84 Long term (current) use of oral hypoglycemic drugs; Z79.899 Other long term (current) drug therapy
CPT/HCPCS: 36415; 71045; 80053; 82550; 82962; 83880; 84484; 84702; 85025; 85610; 85730; 93005; 96372; 99285; J1200; J2060

== ENCOUNTER 2018-12-14 23:58 | Emergency (ER) | payer OTHER ==
[~2018-12-14] VITALS: Ht 165.1 cm; Wt 104.5 kg
[2018-12-15 00:56] LABS: GLUCOSE,POINT OF CARE 326 MG/DL (70-110)
[2018-12-15 05:49] LABS: BASOPHILS % (AUTO) 0.3 % (0.0-2.0); EOSINOPHILS % (AUTO) 1.3 % (1.0-6.0); HEMATOCRIT 40.7 % (36-46); HEMOGLOBIN 12.9 g/dL (12.0-16.0); LYMPHOCYTES % (AUTO) 35.3 % (22.0-44.0); MEAN CORPUSCULAR HEMOGLOBIN 27.2 pg (26.0-34.0); MEAN CORPUSCULAR HGB CONC 31.8 G/dL (31.0-37.0); MEAN CORPUSCULAR VOLUME 86 fL (80-100); MONOCYTES # (AUTO) 0.9 K/uL (0.1-1.0); MONOCYTES % (AUTO) 7.6 % (2.0-9.0); NEUTROPHILS # (AUTO) 6.3 K/uL (1.8-7.7); NEUTROPHILS % (AUTO) 55.5 % (40.0-70.0); PLATELET COUNT (AUTO) 373 K/uL (150-450); RED BLOOD CELL COUNT(AUTO) 4.75 MIL/uL (4.00-5.20); RED CELL DISTRIBUTION WIDTH 16.2 % (11.5-14.5)
[2018-12-15 05:51] LABS: APPEARANCE,URINE CLOUDY (CLEAR); BILIRUBIN,URINE NEGATIVE (NEGATIVE); GLUCOSE, URINE (UA) >=1000 mg/dL (NEGATIVE); KETONES,URINE NEGATIVE (NEGATIVE); LEUKOCYTE ESTERASE ,URINE TRACE (NEGATIVE); NITRATE,URINE POSITIVE (NEGATIVE); OCCULT BLOOD,URINE NEGATIVE (NEGATIVE); PROTEIN,URINE NEGATIVE (NEGATIVE); UROBILINOGEN,URINE 0.2 mg/dL (<=1.0)
[2018-12-15 05:59] LABS: ANION GAP 11 mmol/L (8-16); CALCIUM, TOTAL 9.1 mg/dL (8.8-10.5); CARBON DIOXIDE 23 mmol/L (22-29); CHLORIDE 98 mmol/L (98-107); CREATININE 0.78 mg/dL (0.60-1.30); GLOMERULAR FILTR. RATE CALC > 60 mL/min (>60); GLUCOSE,RANDOM 243 mg/dL (70-110); POTASSIUM 4.1 mmol/L (3.5-5.1); SODIUM SERUM 132 mmol/L (136-145)
[2018-12-15 06:00] LABS: BACTERIA,URINE Many /HPF (None Seen); RBC,URINE 0-2 /HPF (0-2); SQUAMOUS EPITHELIAL CELL,UR Many /LPF (None Seen)
[2018-12-15 06:12] LABS: ALANINE AMINOTRANSFERASE 45 U/L (12-78); ALBUMIN 3.7 g/dL (3.4-5.0); ALKALINE PHOSPHATASE 76 U/L (46-116); ASPARTATE AMINOTRANSFERASE 32 U/L (15-37); BILIRUBIN,TOTAL 0.3 mg/dL (0.1-1.0); HCG,QUANTITATIVE < 1 mIU/mL (0-6); LIPASE 150 U/L (73-393); TOTAL PROTEIN, SERUM 8.4 g/dL (6.4-8.2)
[2018-12-15 06:39] LABS: UREA NITROGEN, BLOOD 9 mg/dL (7-18)
[2018-12-15 06:54] VITALS: BP 106/68
[2018-12-15] MEDS ORDERED: MAG HYDROX/AL HYDROX/SIMETH ES 30 ML SUSPENSION UDCUP PO ONE (07:00)
[2018-12-15] MEDS ORDERED: ACETAMINOPHEN 500 MG TABLET PO ONE (07:00)
== END 2018-12-15 07:11 | disposition home or self-care (01) ==
LOC: EMS 23:58
DX: E11.65 Type 2 diabetes mellitus with hyperglycemia (principal); K29.70 Gastritis, unspecified, without bleeding; F25.9 Schizoaffective disorder, unspecified; E78.00 Pure hypercholesterolemia, unspecified; F17.210 Nicotine dependence, cigarettes, uncomplicated; F31.9 Bipolar disorder, unspecified; F11.90 Opioid use, unspecified, uncomplicated; F15.90 Other stimulant use, unspecified, uncomplicated; Z88.5 Allergy status to narcotic agent; Z88.8 Allergy status to other drugs, medicaments and biological substances
CPT/HCPCS: 87086; 93005; 99406

== ENCOUNTER 2018-12-16 17:00 | Inpatient (IN) | payer MEDICAID, OTHER ==
[~2018-12-16] VITALS: Ht 165.1 cm; Wt 92.5 kg
[~2018-12-16 17:00] MED LIST changes: -ATOR10TA84 PO; -BENZ1TAB10 PO; -GLIP10 PO
[2018-12-16 17:53] LABS: BASOPHILS % (AUTO) 0.5 % (0.0-2.0); EOSINOPHILS % (AUTO) 1.9 % (1.0-6.0); HEMOGLOBIN 12.2 g/dL (12.0-16.0); LYMPHOCYTES # (AUTO) 3.8 K/uL (1.0-4.8); LYMPHOCYTES % (AUTO) 42.5 % (22.0-44.0); MEAN CORPUSCULAR HEMOGLOBIN 27.3 pg (26.0-34.0); MEAN CORPUSCULAR HGB CONC 32.1 G/dL (31.0-37.0); MEAN CORPUSCULAR VOLUME 85 fL (80-100); MONOCYTES # (AUTO) 0.8 K/uL (0.1-1.0); MONOCYTES % (AUTO) 8.9 % (2.0-9.0); NEUTROPHILS # (AUTO) 4.1 K/uL (1.8-7.7); NEUTROPHILS % (AUTO) 46.2 % (40.0-70.0); PLATELET COUNT (AUTO) 367 K/uL (150-450); RED BLOOD CELL COUNT(AUTO) 4.46 MIL/uL (4.00-5.20); RED CELL DISTRIBUTION WIDTH 15.5 % (11.5-14.5)
[2018-12-16 18:15] LABS: ANION GAP 12 mmol/L (8-16); CALCIUM, TOTAL 9.4 mg/dL (8.8-10.5); CARBON DIOXIDE 24 mmol/L (22-29); CHLORIDE 101 mmol/L (98-107); CREATININE 0.71 mg/dL (0.60-1.30); GLOMERULAR FILTR. RATE CALC > 60 mL/min (>60); GLUCOSE,RANDOM 167 mg/dL (70-110); POTASSIUM 3.7 mmol/L (3.5-5.1); SODIUM SERUM 137 mmol/L (136-145); UREA NITROGEN, BLOOD 6 mg/dL (7-18)
[2018-12-16 18:19] LABS: ALANINE AMINOTRANSFERASE 38 U/L (12-78); ALBUMIN 3.4 g/dL (3.4-5.0); ALKALINE PHOSPHATASE 67 U/L (46-116); ASPARTATE AMINOTRANSFERASE 28 U/L (15-37); BILIRUBIN,TOTAL 0.2 mg/dL (0.1-1.0); TOTAL PROTEIN, SERUM 7.6 g/dL (6.4-8.2)
[2018-12-16 18:24] LABS: AMPHET/METH SCREEN,URINE NEGATIVE (NEGATIVE); BARBITURATE SCREEN, URINE NEGATIVE (NEGATIVE); BENZODIAZEPINES SCREEN,URINE NEGATIVE (NEGATIVE); CANNABINOID SCREEN,URINE NEGATIVE (NEGATIVE); COCAINE SCREEN,URINE NEGATIVE (NEGATIVE); METHADONE SCREEN, URINE NEGATIVE (NEGATIVE); OPIATE SCREEN,URINE NEGATIVE (NEGATIVE)
[2018-12-16 18:32] LABS: PHENCYCLIDINE SCREEN,URINE NEGATIVE (NEGATIVE)
[2018-12-16] MEDS ORDERED: LORazepam 2 MG TABLET PO ONE (18:45)
[2018-12-16] MEDS ORDERED: GLUCAGON,HUMAN RECOMBINANT 1 MG VIAL IM PRN (20:30)
[2018-12-16 20:48] VITALS: BP 138/84
[2018-12-16] MEDS: INSULIN LISPRO 100 UNITS/ML SQ PRN (21:00)
[2018-12-16] MEDS ORDERED: PNEUMOCOCCAL VACCINE POLYVALENT 0.5 ML VIAL [PPSV23] IM ONE (21:45)
[2018-12-17 06:06] VITALS: BP 140/86
[2018-12-17 06:20] LABS: GLUCOMETER DEV NAME(LOC) BV3S.; GLUCOSE,POINT OF CARE 206 MG/DL (70-110)
[2018-12-17] MEDS: MetFORMIN HCL 500 MG TABLET PO SCH ×2 (07:10→16:23)
[2018-12-17] MEDS: INSULIN LISPRO 100 UNITS/ML SQ PRN ×4 (07:11→21:00)
[2018-12-17 08:24] VITALS: BP 133/81
[2018-12-17] MEDS ORDERED: ONDANSETRON HCL 4 MG TABLET PO PRN (08:45)
[2018-12-17] MEDS ORDERED: BENZOCAINE/MENTHOL LOZENGE MM PRN (08:45)
[2018-12-17] MEDS ORDERED: BACITRACIN 28.4 GM OINTMENT TP PRN (08:45)
[2018-12-17] MEDS ORDERED: LOPERAMIDE HCL 2 MG CAPSULE PO PRN (08:45)
[2018-12-17] MEDS ORDERED: ALBUTEROL SULFATE HFA 90 MCG/PUFF 8 GM INHALER IH PRN (08:45)
[2018-12-17] MEDS ORDERED: IBUPROFEN 600 MG TABLET PO PRN (08:45)
[2018-12-17] MEDS ORDERED: CloNIDine HCL 0.1 MG TABLET PO PRN (08:45)
[2018-12-17] MEDS ORDERED: ACETAMINOPHEN 325 MG TABLET PO PRN (08:45)
[2018-12-17] MEDS ORDERED: PETROLATUM,WHITE 28 GM JELLY TP PRN (08:45)
[2018-12-17] MEDS ORDERED: MAG HYDROX/AL HYDROX/SIMETH ES 30 ML SUSPENSION UDCUP PO PRN (08:45)
[2018-12-17] MEDS ORDERED: MAGNESIUM HYDROXIDE SUSPENSION 30 ML UDCUP PO PRN (08:45)
[2018-12-17] MEDS: OMEPRAZOLE 20 MG CAPSULE PO SCH (09:00)
[2018-12-17] MEDS: DOCUSATE SODIUM 100 MG CAPSULE PO SCH (09:00)
[2018-12-17 09:21] LABS: CHOL/HDL RATIO 6.7 (3.9-5.7); CHOLESTEROL 269 mg/dL (131-200); FREE T4 (FREE THYROXINE) 0.86 ng/dL (0.76-1.46); HCG,QUANTITATIVE < 1 mIU/mL (0-6); HDL CHOLESTEROL 40 mg/dL (40-60); LDL CHOL (CALC.) 149 mg/dL (0-130); TRIGLYCERIDES 400 mg/dL (15-150)
[2018-12-17] MEDS: LORazepam 2 MG TABLET PO PRN ×2 (10:35→20:28)
[2018-12-17] MEDS: BENZTROPINE MESYLATE 0.5 MG TABLET PO SCH ×2 (11:36→16:23)
[2018-12-17] MEDS: FluPHENAZine HCL 10 MG TABLET PO SCH ×2 (11:36→16:23)
[2018-12-17 12:05] LABS: GLUCOMETER DEV NAME(LOC) BV3S.; GLUCOSE,POINT OF CARE 143 MG/DL (70-110)
[2018-12-17 16:09] VITALS: BP 122/76
[2018-12-17 16:36] LABS: GLUCOMETER DEV NAME(LOC) BV3S.; GLUCOSE,POINT OF CARE 266 MG/DL (70-110)
[2018-12-17] MEDS: SERTRALINE HCL 50 MG TABLET PO SCH (20:05)
[2018-12-17 20:19] LABS: GLUCOMETER DEV NAME(LOC) BV3S.; GLUCOSE,POINT OF CARE 187 MG/DL (70-110)
[2018-12-18 06:12] VITALS: BP 125/77
[2018-12-18 06:56] LABS: GLUCOMETER DEV NAME(LOC) BV3S.; GLUCOSE,POINT OF CARE 191 MG/DL (70-110)
[2018-12-18] MEDS: MetFORMIN HCL 500 MG TABLET PO SCH ×2 (06:59→16:20)
[2018-12-18] MEDS: INSULIN LISPRO 100 UNITS/ML SQ PRN ×4 (07:05→20:48)
[2018-12-18] MEDS: DOCUSATE SODIUM 100 MG CAPSULE PO SCH (08:18)
[2018-12-18] MEDS: FluPHENAZine HCL 10 MG TABLET PO SCH ×2 (08:18→16:20)
[2018-12-18] MEDS: OMEPRAZOLE 20 MG CAPSULE PO SCH (08:18)
[2018-12-18] MEDS: BENZTROPINE MESYLATE 0.5 MG TABLET PO SCH ×2 (08:18→16:20)
[2018-12-18 08:30] VITALS: BP 130/80
[2018-12-18 14:25] LABS: GLUCOMETER DEV NAME(LOC) BV3S.; GLUCOSE,POINT OF CARE 172 MG/DL (70-110)
[2018-12-18 16:20] VITALS: BP 138/87
[2018-12-18 16:45] LABS: GLUCOMETER DEV NAME(LOC) BV3S.; GLUCOSE,POINT OF CARE 237 MG/DL (70-110)
[2018-12-18] MEDS: LORazepam 2 MG TABLET PO PRN (19:05)
[2018-12-18] MEDS: SERTRALINE HCL 50 MG TABLET PO SCH (20:43)
[2018-12-18 20:50] LABS: GLUCOMETER DEV NAME(LOC) BV3S.; GLUCOSE,POINT OF CARE 165 MG/DL (70-110)
[2018-12-19 06:21] LABS: GLUCOMETER DEV NAME(LOC) BV3S.; GLUCOSE,POINT OF CARE 172 MG/DL (70-110)
[2018-12-19] MEDS: INSULIN LISPRO 100 UNITS/ML SQ PRN ×4 (06:23→20:44)
[2018-12-19] MEDS: MetFORMIN HCL 500 MG TABLET PO SCH ×2 (06:25→16:23)
[2018-12-19 06:54] VITALS: BP 127/78
[2018-12-19] MEDS: FluPHENAZine HCL 10 MG TABLET PO SCH ×2 (08:22→16:22)
[2018-12-19 08:23] VITALS: BP 120/69
[2018-12-19] MEDS: DOCUSATE SODIUM 100 MG CAPSULE PO SCH (08:23)
[2018-12-19] MEDS: BENZTROPINE MESYLATE 0.5 MG TABLET PO SCH ×2 (08:23→16:23)
[2018-12-19] MEDS: OMEPRAZOLE 20 MG CAPSULE PO SCH (08:23)
[2018-12-19] MEDS: LORazepam 2 MG TABLET PO PRN ×2 (08:29→16:23)
[2018-12-19 11:16] LABS: GLUCOMETER DEV NAME(LOC) BV3S.; GLUCOSE,POINT OF CARE 216 MG/DL (70-110)
[2018-12-19 16:00] VITALS: BP 106/73
[2018-12-19 17:17] LABS: GLUCOMETER DEV NAME(LOC) BV3S.; GLUCOSE,POINT OF CARE 179 MG/DL (70-110)
[2018-12-19 17:20] VITALS: BP 113/81
[2018-12-19] MEDS: ZOLPIDEM TARTRATE 10 MG TABLET PO PRN (20:13)
[2018-12-19] MEDS: SERTRALINE HCL 50 MG TABLET PO SCH (20:13)
[2018-12-19 20:51] LABS: GLUCOMETER DEV NAME(LOC) BV3S.; GLUCOSE,POINT OF CARE 155 MG/DL (70-110)
[2018-12-20 06:18] VITALS: BP 124/83
[2018-12-20] MEDS: MetFORMIN HCL 500 MG TABLET PO SCH ×2 (06:41→17:06)
[2018-12-20] MEDS: INSULIN LISPRO 100 UNITS/ML SQ PRN ×4 (06:56→20:38)
[2018-12-20 07:10] LABS: GLUCOMETER DEV NAME(LOC) BV3S.; GLUCOSE,POINT OF CARE 166 MG/DL (70-110)
[2018-12-20] MEDS: OMEPRAZOLE 20 MG CAPSULE PO SCH (08:21)
[2018-12-20] MEDS: BENZTROPINE MESYLATE 0.5 MG TABLET PO SCH ×2 (08:21→16:12)
[2018-12-20] MEDS: DOCUSATE SODIUM 100 MG CAPSULE PO SCH (08:21)
[2018-12-20] MEDS: FluPHENAZine HCL 10 MG TABLET PO SCH ×2 (08:21→16:12)
[2018-12-20] MEDS: LORazepam 2 MG TABLET PO PRN ×2 (08:27→13:52)
[2018-12-20 08:35] VITALS: BP 108/61
[2018-12-20 12:52] LABS: GLUCOMETER DEV NAME(LOC) BV3S.; GLUCOSE,POINT OF CARE 163 MG/DL (70-110)
[2018-12-20 16:17] VITALS: BP 108/60
[2018-12-20 17:07] LABS: GLUCOMETER DEV NAME(LOC) BV3S.; GLUCOSE,POINT OF CARE 184 MG/DL (70-110)
[2018-12-20] MEDS: SERTRALINE HCL 50 MG TABLET PO SCH (20:21)
[2018-12-20] MEDS: ZOLPIDEM TARTRATE 10 MG TABLET PO PRN (21:03)
[2018-12-20 21:27] LABS: GLUCOMETER DEV NAME(LOC) BV3S.; GLUCOSE,POINT OF CARE 162 MG/DL (70-110)
[2018-12-21 05:26] VITALS: BP 112/76
[2018-12-21] MEDS: MetFORMIN HCL 500 MG TABLET PO SCH ×2 (06:35→16:45)
[2018-12-21 06:44] LABS: GLUCOMETER DEV NAME(LOC) BV3S.; GLUCOSE,POINT OF CARE 216 MG/DL (70-110)
[2018-12-21] MEDS: INSULIN LISPRO 100 UNITS/ML SQ PRN ×4 (07:02→21:00)
[2018-12-21 08:25] VITALS: BP 118/65
[2018-12-21] MEDS: DOCUSATE SODIUM 100 MG CAPSULE PO SCH (08:25)
[2018-12-21] MEDS: BENZTROPINE MESYLATE 0.5 MG TABLET PO SCH ×2 (08:25→16:45)
[2018-12-21] MEDS: OMEPRAZOLE 20 MG CAPSULE PO SCH (08:25)
[2018-12-21] MEDS: FluPHENAZine HCL 10 MG TABLET PO SCH ×2 (08:25→16:45)
[2018-12-21] MEDS: LORazepam 2 MG TABLET PO PRN ×2 (08:53→16:45)
[2018-12-21 12:22] LABS: GLUCOMETER DEV NAME(LOC) BV3S.; GLUCOSE,POINT OF CARE 237 MG/DL (70-110)
[2018-12-21 16:23] VITALS: BP 122/84
[2018-12-21 16:43] LABS: GLUCOMETER DEV NAME(LOC) BV3S.; GLUCOSE,POINT OF CARE 189 MG/DL (70-110)
[2018-12-21] MEDS: SERTRALINE HCL 50 MG TABLET PO SCH (20:36)
[2018-12-21] MEDS: ZOLPIDEM TARTRATE 10 MG TABLET PO PRN (20:36)
[2018-12-21 20:53] LABS: GLUCOMETER DEV NAME(LOC) BV3S.; GLUCOSE,POINT OF CARE 142 MG/DL (70-110)
[2018-12-22 06:14] VITALS: BP 116/72
[2018-12-22 06:29] LABS: GLUCOMETER DEV NAME(LOC) BV3S.; GLUCOSE,POINT OF CARE 160 MG/DL (70-110)
[2018-12-22] MEDS: MetFORMIN HCL 500 MG TABLET PO SCH ×2 (06:59→16:58)
[2018-12-22] MEDS: INSULIN LISPRO 100 UNITS/ML SQ PRN ×3 (07:00→17:00)
[2018-12-22 08:00] VITALS: BP 113/67
[2018-12-22] MEDS ORDERED: SERT50TA12 PO (08:12)
[2018-12-22] MEDS ORDERED: BENZ0.5T44 PO (08:12)
[2018-12-22] MEDS ORDERED: FLUP10 PO (08:12)
[2018-12-22] MEDS: OMEPRAZOLE 20 MG CAPSULE PO SCH (08:33)
[2018-12-22] MEDS: BENZTROPINE MESYLATE 0.5 MG TABLET PO SCH ×2 (08:33→16:58)
[2018-12-22] MEDS: DOCUSATE SODIUM 100 MG CAPSULE PO SCH (08:33)
[2018-12-22] MEDS: FluPHENAZine HCL 10 MG TABLET PO SCH ×2 (08:34→16:58)
[2018-12-22 11:34] LABS: GLUCOMETER DEV NAME(LOC) BV3S.; GLUCOSE,POINT OF CARE 196 MG/DL (70-110)
[2018-12-22 16:19] VITALS: BP 114/72
[2018-12-22 16:51] LABS: GLUCOMETER DEV NAME(LOC) BV3S.; GLUCOSE,POINT OF CARE 149 MG/DL (70-110)
[2018-12-22] MEDS: LORazepam 2 MG TABLET PO PRN (16:58)
== END 2018-12-22 17:50 | disposition home or self-care (01) | DRG 750 ==
LOC: EMS 17:04 → B3A 18:45
PROVIDERS: ADMIT Psychiatry & Neurology Psychiatry; ATTEND Psychiatry & Neurology Psychiatry
DX: F25.0 Schizoaffective disorder, bipolar type (principal); E11.9 Type 2 diabetes mellitus without complications; R45.851 Suicidal ideations; E66.9 Obesity, unspecified; E78.00 Pure hypercholesterolemia, unspecified; E78.5 Hyperlipidemia, unspecified; F41.9 Anxiety disorder, unspecified; G47.00 Insomnia, unspecified; K59.00 Constipation, unspecified; F17.210 Nicotine dependence, cigarettes, uncomplicated; Z91.19 Patient's noncompliance with other medical treatment and regimen; Z91.5 Personal history of self-harm; Z56.0 Unemployment, unspecified; Z88.8 Allergy status to other drugs, medicaments and biological substances; Z68.33 Body mass index [BMI] 33.0-33.9, adult
CPT/HCPCS: 84439; 84443; 90732; 93005; G0480; G0481

== ENCOUNTER 2018-12-27 09:16 | Emergency (ER) | payer MEDICAID, OTHER ==
[~2018-12-27] VITALS: Ht 162.6 cm; Wt 95.0 kg
[~2018-12-27 09:16] MED LIST changes: +BENZ0.5T44 PO; +FLUP10 PO; -FLUP5 PO; -QUET200T PO; +SERT50TA12 PO
[2018-12-27 09:27] VITALS: BP 122/82
[2018-12-27 09:36] LABS: GLUCOSE,POINT OF CARE 149 MG/DL (70-110)
[2018-12-27] MEDS ORDERED: CALCIUM CARBONATE 500 MG CHEWABLE TABLET CHEW ONE (09:45)
== END 2018-12-27 10:11 | disposition home or self-care (01) ==
LOC: EMS 09:18
DX: K21.9 Gastro-esophageal reflux disease without esophagitis (principal); E11.9 Type 2 diabetes mellitus without complications; E78.00 Pure hypercholesterolemia, unspecified; F20.9 Schizophrenia, unspecified; F31.9 Bipolar disorder, unspecified; F17.210 Nicotine dependence, cigarettes, uncomplicated; F12.90 Cannabis use, unspecified, uncomplicated; F15.90 Other stimulant use, unspecified, uncomplicated; Z79.899 Other long term (current) drug therapy; Z98.890 Other specified postprocedural states; Z88.5 Allergy status to narcotic agent; Z88.8 Allergy status to other drugs, medicaments and biological substances; Z76.0 Encounter for issue of repeat prescription
CPT/HCPCS: 82948; 99406